=== PATIENT | male | born 1970 | race Caucasian/White ===

== ENCOUNTER → 2022-08-21 09:51 | Outpatient (CLI) | payer OTHER, SELFPAY ==
--- NOTE | 2022-08-21 | DI.RAD.S_ITS ---
PROCEDURE: XR CHEST 2V INDICATIONS: Shortness of breath TECHNIQUE: 2 views of the chest were acquired. COMPARISON: None. FINDINGS: Surgical changes and devices: None. Lungs and pleura: Lungs are clear. No pleural effusions or pneumothorax. Mediastinum: Mediastinal contours are normal. Heart size is normal. Bones and chest wall: No suspicious bony abnormalities. Soft tissues appear unremarkable. IMPRESSION: Normal two view chest x-ray Approved by: Greg Casey M.D. on 08/21/2022 at 14:25
--- NOTE | 2022-08-28 08:39 | PM.PFT.1 ---
Pulmonary Function Test Referral & Results Date Patient Seen: 08/21/22 Results: The spirometry demonstrates an FVC of 3.95 L which is 70% of predicted. The FEV1 was measured at 2.91 L which is 75% of predicted. The FEV1/FVC ratio was 74 which is 95% of predicted. Following the administration of bronchodilator there was a 26% improvement in FEF 25-75%. Interpretation: This study, which was done with forced spirometry only, demonstrates probably mild obstructive lung disease based on reduction FEV1, although FEV1/FVC ratio is preserved. This shape a flow volume loop does support the presence of obstructive lung disease and there is evidence of notable improvement in small airway flow post bronchodilator based on the change in the FEF 25-75% as above Clinical correlation suggested
== END ==
PROVIDERS: Referring Provider Chiropractor; Visit Provider Chiropractor
DX: R06.02 Shortness of breath (principal); Z87.891 Personal history of nicotine dependence; J98.8 Other specified respiratory disorders
CPT/HCPCS: 71046; 94060